=== PATIENT | female | born 2000 | race Caucasian/White ===

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

== ENCOUNTER 2018-01-20 22:21 | Emergency (ER) | payer SELFPAY ==
[2018-01-20 23:27] VITALS: BP 112/80
--- NOTE | 2018-01-20 23:36 | ED Physician Documentation ---
Female Urogenital Problems - HISTORIAN Historian: patient, friend - HPI Stated Complaint: Abdominal Cramping Chief Complaint: Female Urogenital Problems Additional Information: Intermittent mid abdominal cramping for 2-3 days. Worse after standing all day at work. Home test positive about a week ago. No vag bleeding and no fever. . Not sure of LNMP. Would not have come to ER but friends kept telling her something was terribly wrong. Quit smoking when she learned she was . Has nausea every morning and feels she is urinating a lot. Appointment with OB at [facility] on 01/30. - ROS CONST: none - PAST HX Past History: none Allergies/Adverse Reactions: Allergies Allergy/AdvReac Type Severity Reaction Status Date / Time No Known Allergies Allergy Verified 05/31/17 18:32 Home Medications: Ambulatory Orders Medication Instructions Recorded NK [NK] 11/13/13 - SOCIAL HX Smoking History: cigarettes - FAMILY HX Family History: other (GM with breast cancer. GGM with unknown cancer) - VITAL SIGNS Vital Signs: Vital Signs Temp Pulse Resp BP Pulse Ox 98.7 F 70 18 112/80 98 01/20/18 22:25 01/20/18 23:26 01/20/18 23:26 01/20/18 23:26 01/20/18 23:26 - REVIEWED ASSESSMENTS Nursing Assessment Reviewed: Yes Vitals Reviewed: Yes Progress - Progress Progress: Urine clean. Urine HCG positive. Serum Quant drawn but is send out. She will obtain that result from medical records on Tuesday, January 23. See her provider on 01/30. ED Results Lab/Radiology - Lab Results Lab Results: Lab Results 01/20/18 23:10 Serum HCG, Qual Positive H (NEGATIVE) - Orders Orders: ED Orders Category Date Time Status SERUM HCG Routine Lab 01/20/18 23:10 Completed URINALYSIS Routine Lab 01/20/18 Ordered URINE HCG Stat Lab 01/20/18 22:51 Ordered Female Urogenital Problems - EXAM General Appearance: no acute distress, alert EENT: eye inspection normal, ENT inspection normal, pharynx normal, no signs of dehydration Neck: nml inspection Respiratory: no resp. distress CVS: reg rate & rhythm, heart sounds normal, no murmur Abdomen: soft, non-tender, no distention, nml bowel sounds Back: non-tender, painless ROM. No: vertebral point-tendernes, CVA tenderness Skin: color nml, no rash, warm,dry Extremities: normal range of motion (gait and stance) Neuro: CN's nml as tested, motor nml, sensation nml, cognition normal Discharge Clincal Impression: Concern about current without diagnosis Referrals: Rabia Rhodes MD [Primary Care Provider] - 2 Days Condition: Good Disposition: 01 HOME, SELF-CARE Decision to Admit: NO Decision Time: 22:32
[2018-01-22 00:58] LABS: APPEARANCE,URINE CLEAR (CLEAR); COLOR,URINE YELLOW (YELLOW); OCCULT BLOOD,URINE NEGATIVE (NEGATIVE); UROBILINOGEN URINE 0.2 Eu (0.2-1.0)
== END 2018-01-20 23:26 | disposition home or self-care (01) ==
LOC: ED 22:21
DX: R10.9 Unspecified abdominal pain (principal); R11.0 Nausea
CPT/HCPCS: 81002; 81025; 84702; 84703; 99283

== ENCOUNTER 2018-04-04 13:14 | Outpatient (CLI) | payer OTHER ==
[2018-04-04 13:56] LABS: eGFR (Non-African) > 60
== END 2018-04-04 13:15 ==
LOC: LAB 13:14
PROVIDERS: ATTEND Psychiatry & Neurology Psychiatry
DX: Z79.899 Other long term (current) drug therapy (principal)
CPT/HCPCS: 36415; 80053; 80061; 83036